=== PATIENT | male | born 2000 | race African-American/Black ===

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

== ENCOUNTER 2019-05-10 16:08 | Outpatient (CLI) | payer OTHER | END 2019-05-10 19:32 | disposition home or self-care (01) | LOC: LABW 16:08 | DX: R50.9 Fever, unspecified (principal); R93.0 Abnormal findings on diagnostic imaging of skull and head, not elsewhere classified; R52 Pain, unspecified | CPT/HCPCS: 87502 ==

== ENCOUNTER 2019-08-01 17:38 | Outpatient (CLI) | payer OTHER | END 2019-08-01 20:08 | disposition home or self-care (01) | LOC: RAD 17:38 | DX: R10.9 Unspecified abdominal pain (principal); R11.0 Nausea ==

== ENCOUNTER 2022-04-02 15:58 | Outpatient (CLI) | payer OTHER | END 2022-04-02 21:27 | disposition home or self-care (01) | LOC: RAD 15:58 | PROVIDERS: ATTEND Family Medicine | DX: M25.561 Pain in right knee (principal); M25.861 Other specified joint disorders, right knee ==

== ENCOUNTER 2022-04-27 08:27 | Outpatient (CLI) | payer OTHER | END 2022-04-27 19:01 | disposition home or self-care (01) | LOC: MRI 08:27 | PROVIDERS: ATTEND Family Medicine | DX: M25.569 Pain in unspecified knee (principal); M25.861 Other specified joint disorders, right knee ==

== ENCOUNTER 2022-06-25 19:30 | Outpatient (CLI) | payer BC ==
[2022-06-25 19:56] LABS: PLATELET COUNT 279 K/uL (142-355)
[2022-06-25 20:09] LABS: POTASSIUM 4.1 mmol/L (3.6-5.2)
== END 2022-06-25 21:00 | disposition home or self-care (01) ==
LOC: LABW 19:30
PROVIDERS: ATTEND Family Medicine
DX: Z79.899 Other long term (current) drug therapy (principal); R73.03 Prediabetes; R53.83 Other fatigue; E78.49 Other hyperlipidemia
CPT/HCPCS: 36415; 80053; 80061; 83036; 85027